=== PATIENT | female | born 1960 | race Caucasian/White ===

== ENCOUNTER 2025-08-02 13:48 | Outpatient (RCR) | payer MEDICARE, MEDICAID, SELFPAY | END 2025-08-02 23:59 | disposition home or self-care (01) | LOC: PT.CARL 13:48 | PROVIDERS: Visit Provider Pediatrics | DX: M25.512 Pain in left shoulder (principal); M54.12 Radiculopathy, cervical region | CPT/HCPCS: 97162 ==